=== PATIENT | male | born 1965 | race Caucasian/White ===

== ENCOUNTER 2023-09-27 08:38 | Day surgery (SDC) | payer OTHER ==
[~2023-09-27] VITALS: Ht 182.9 cm; Wt 87.3 kg
[2023-09-27] VITALS (12 sets, daily range): BP systolic 106–130; BP diastolic 63–70; PULSE 54–68; RESP 14–15
[~2023-09-27 08:38] MED LIST: AEC81 PO; AMYL1CAP63 PO; DICY20TA3 PO; FOLI-74 PO; GABA300C PO; LOSA25TA41 PO; METO-408 PO; PANT20TA18 PO; ROSU20TA23 PO
[2023-09-27] MEDS: 0.9%NACL 1000ML 1,000 ML IV ONE (10:07)
[2023-09-27] MEDS ORDERED: PROPOFOL 10 MG/ML 20ML VIAL IV ONE (12:57)
== END 2023-09-27 14:45 | disposition home or self-care (01) ==
LOC: ENDO 08:38
PROVIDERS: ATTEND Internal Medicine Gastroenterology
DX: R93.3 Abnormal findings on diagnostic imaging of other parts of digestive tract (principal); R93.2 Abnormal findings on diagnostic imaging of liver and biliary tract; K80.50 Calculus of bile duct without cholangitis or cholecystitis without obstruction; R10.30 Lower abdominal pain, unspecified; R10.12 Left upper quadrant pain; K86.2 Cyst of pancreas; K86.3 Pseudocyst of pancreas; K85.90 Acute pancreatitis without necrosis or infection, unspecified; K57.10 Diverticulosis of small intestine without perforation or abscess without bleeding; I10 Essential (primary) hypertension; E78.5 Hyperlipidemia, unspecified; I25.10 Atherosclerotic heart disease of native coronary artery without angina pectoris; I25.2 Old myocardial infarction; G47.30 Sleep apnea, unspecified; K76.0 Fatty (change of) liver, not elsewhere classified; Z79.899 Other long term (current) drug therapy; Z98.890 Other specified postprocedural states; Z90.49 Acquired absence of other specified parts of digestive tract; Z86.010 Personal history of colon polyps; Z79.82 Long term (current) use of aspirin
CPT/HCPCS: 43237; J7030 ×2; J2704; A4620; A4215 ×2; A4223; A4657; A7002; A4222; A4221; A4663; A4606; J3490